=== PATIENT | male | born 1980 | race Caucasian/White ===

== ENCOUNTER 2017-09-13 09:22 | Emergency (ER) | payer BC ==
[2017-09-13] MEDS ORDERED: LIDOCAINE/EPINEPHR/TETRACAINE 5 ML BOTTLE TOPICAL ONE (09:41)
[2017-09-13] MEDS ORDERED: DIPH,PERTUS(ACELL)TETVAC-LF 0.5 ML VIAL IM ONE (10:01)
--- NOTE | 2017-09-13 10:02 | ED ---
Wound/Laceration HPI - General Chief Complaint: Wound/Laceration Stated Complaint: HEAD INJURY, LACERATION Time Seen by Provider: 09/13/17 09:36 Source: patient, RN notes reviewed, old records reviewed Mode of arrival: ambulatory Limitations: no limitations - History of Present Illness Initial Comments: 37-year-old male presents today chief complaint of a laceration over his forehead. Patient reports that he was loading his truck with lumber and didn't realize the lumbar sick and instructed. Patient reports that he walked into a board. Patient reports he lost conscious. No vomiting. Patient states he has no dizziness or headache. He reports that the laceration is over his for any would not stop bleeding. He denies any other physical symptoms at this time. He reports that he came here for stitches for the last or bleeding.Patient denies any recent fever, chills, shortness of breath, chest pain, back pain, abdominal pain, nausea vomiting, numbness or tingling, dysuria or hematuria, constipation or diarrhea, headaches or visual changes, or any other current symptoms - Related Data Home Medications Medication Instructions Recorded Confirmed No Known Home Medications [No 04/24/16 04/24/16 Known Home Medications] Allergies Allergy/AdvReac Type Severity Reaction Status Date / Time No Known Allergies Allergy Verified 09/13/17 09:31 Review of Systems ROS Statement: Those systems with pertinent positive or pertinent negative responses have been documented in the HPI. ROS Other: All systems not noted in ROS Statement are negative. Past Medical History Past Medical History: No Reported History History of Any Multi-Drug Resistant Organisms: None Reported Past Surgical History: No Surgical Hx Reported Past Psychological History: No Psychological Hx Reported Smoking Status: Former smoker Past Alcohol Use History: Occasional Past Drug Use History: None Reported General Exam - General Exam Comments Initial Comments: 37-year-old male. No distress. Limitations: no limitations General appearance: alert, in no apparent distress Head exam: Present: atraumatic, normocephalic, other (Scalp has evidence of psoriasis.). Absent: normal inspection (Patient is a 89 laceration over the right anterior forehead.) Eye exam: Present: normal appearance, PERRL, EOMI. Absent: scleral icterus, conjunctival injection, periorbital swelling ENT exam: Present: normal exam, mucous membranes moist Neck exam: Present: normal inspection. Absent: tenderness, meningismus, lymphadenopathy Respiratory exam: Present: normal lung sounds bilaterally. Absent: respiratory distress, wheezes, rales, rhonchi, stridor Cardiovascular Exam: Present: regular rate, normal rhythm, normal heart sounds. Absent: systolic murmur, diastolic murmur, rubs, gallop, clicks Extremities exam: Present: normal inspection, full ROM, normal capillary refill. Absent: tenderness, pedal edema, joint swelling, calf tenderness Back exam: Present: normal inspection Neurological exam: Present: alert, oriented X3, CN II-XII intact Psychiatric exam: Present: normal affect, normal mood Skin exam: Present: warm, dry, intact, normal color. Absent: rash Course Vital Signs 09/13/17 09:28 Temperature 97.5 F L Pulse Rate 115 H Respiratory 18 Rate Blood Pressure 168/98 O2 Sat by Pulse 100 Oximetry Procedures - Laceration Laceration #1 Site: scalp Size (cm): 2 Description: linear Depth: simple, single layer Anesthetic Used: lidocaine 1% Anesthesia Technique: local infiltration Amount (mls): 2 Pre-repair: wound explored, irrigated extensively Size of Sutures: 5-0 Number of Sutures: 4 Technique: simple, interrupted Patient Tolerated Procedure: well, no complications Medical Decision Making - Medical Decision Making Patient is a 37-year-old male presents emergency department today she had a laceration over his right anterior forearm. He reports he was walking and ran into a piece avoid a sticking out of his truck. He reports that the laceration would not stop bleeding. Laceration measures approximately 2 cm. Wound was thoroughly irrigated with saline and Betadine. Well approximated with 4 sutures. Alert and oriented has no neurological deficits. No vomiting loss consciousness or any other injury. Discussed monitoring for any signs of infection including redness swelling or drainage. Patient understands treatment plan will comply. Return parameters were discussed. Patient was also given updated tetanus vaccination. Disposition Clinical Impression: Forehead laceration Disposition: HOME SELF-CARE Condition: Good Instructions: Laceration (ED) Additional Instructions: Please return to the emergency room in 7 days to have sutures removed. Please leave wound covered for the first 24-48 hours and then leave open to air after that time. Please use clean soap and water to clean the suture area to prevent scabbing over the top of your sutures. Please watch for any signs of infection which may include but not limited to increased pain, swelling, redness, fever or chills. Please return to the emergency room if any signs of infection do occur. Please return to the emergency room for any other concerns or complications. Referrals: None,Stated [Primary Care Provider] - 1-2 days Melisa Galeano MD [STAFF PHYSICIAN] - 1-2 days Time of Disposition: 10:37
[2017-09-13 10:58] VITALS: BP 142/86; PULSE 92; RESP 16; TEMP 98
== END 2017-09-13 10:57 | disposition home or self-care (01) ==
LOC: EC 09:22
DX: S01.81XA Laceration without foreign body of other part of head, initial encounter (principal); Z23 Encounter for immunization; Z87.891 Personal history of nicotine dependence; W22.8XXA Striking against or struck by other objects, initial encounter
CPT/HCPCS: 12011; 90471; 90715; 99283